=== PATIENT | male | born 1990 | race Asian ===

== ENCOUNTER 2016-11-30 08:26 | Emergency (ER) | payer BC ==
[~2016-11-30] VITALS: Ht 188 cm; Wt 99.8 kg
[2016-11-30 08:35] VITALS: TEMP 97.8
[2016-11-30 10:13] VITALS: BP 126/60
== END 2016-11-30 10:15 | disposition home or self-care (01) ==
LOC: ED 08:26
PROC: 2W3SXYZ Immobilization of Right Foot using Other Device (ICD-10-PCS; principal; 2016-11-30)
DX: S93.491A Sprain of other ligament of right ankle, initial encounter (principal); X50.1XXA Overexertion from prolonged static or awkward postures, initial encounter; Y93.B9 Activity, other involving muscle strengthening exercises; Y92.018 Other place in single-family (private) house as the place of occurrence of the external cause
CPT/HCPCS: 96372; 99283; J1885

== ENCOUNTER 2019-04-11 21:40 | Emergency (ER) | payer OTHER ==
[~2019-04-11] VITALS: Ht 188 cm; Wt 88.5 kg
[2019-04-11 22:17] LABS: PLATELET COUNT 321 K/uL (142-355)
[2019-04-11 22:33] LABS: POTASSIUM 3.6 mmol/L (3.6-5.2); SODIUM 144 mmol/L (136-145)
[2019-04-11 22:46] LABS: PARTIAL THROMBOPLASTIN TIME 23.8 SECONDS (24.5-33.6)
[2019-04-12 04:10] VITALS: BP 138/83; TEMP 98.1
== END 2019-04-12 04:10 | disposition short-term general hospital (02) ==
LOC: ED 21:49
PROVIDERS: Hospitalist
DX: R07.89 Other chest pain (principal); J93.9 Pneumothorax, unspecified; F17.210 Nicotine dependence, cigarettes, uncomplicated
CPT/HCPCS: 36415; 36600; 80053; 82150; 82550; 82805; 83690; 83880; 84484; 85027; 85379; 85610; 85730; 93005; 94664; 96374; 96375; 96376; 99284; J1885; J2270; J2405

== ENCOUNTER 2019-04-12 04:22 | Outpatient (CLI) | payer OTHER | END 2019-04-12 06:24 | disposition short-term general hospital (02) | LOC: AMB 04:22 | DX: J93.83 Other pneumothorax (principal) | CPT/HCPCS: A0425; A0429 ==

== ENCOUNTER 2019-12-20 10:23 | Emergency (ER) | payer OTHER ==
[~2019-12-20] VITALS: Ht 188 cm; Wt 88.5 kg
[2019-12-20 10:38] LABS: PLATELET COUNT 238 K/uL (142-355)
[2019-12-20 10:45] LABS: POTASSIUM 3.8 mmol/L (3.6-5.2)
[2019-12-20 13:15] VITALS: BP 141/76; TEMP 99.1
== END 2019-12-20 13:15 | disposition short-term general hospital (02) ==
LOC: ED 10:23
PROVIDERS: Emergency Medicine Emergency Medical Services
PROC: 0W9900Z Drainage of Right Pleural Cavity with Drainage Device, Open Approach (ICD-10-PCS; principal; 2019-12-20)
DX: J93.83 Other pneumothorax (principal); F17.210 Nicotine dependence, cigarettes, uncomplicated
CPT/HCPCS: 36415; 80053; 85027; 96360; 96375; 96376; 99285; J1170; J2060; J2270